=== PATIENT | female | born 1955 | race Two or more races ===

== ENCOUNTER → 2021-10-14 | Emergency (ER) | payer OTHER ==
[~2021-10-14] VITALS: Ht 165.1 cm; Wt 54.4 kg
[~2021-10-14] MED LIST: CLARITIN10 M1 PO; MUPIROCIN1 G1 TOP
== END | disposition home or self-care (01) ==
LOC: ER 10:06
DX: T14.8XXA Other injury of unspecified body region, initial encounter (principal); W57.XXXA Bitten or stung by nonvenomous insect and other nonvenomous arthropods, initial encounter; Y93.9 Activity, unspecified; Y92.9 Unspecified place or not applicable; Y99.9 Unspecified external cause status; Z88.0 Allergy status to penicillin